=== PATIENT | male | born 1980 | race American Indian/Alaskan Native ===

== ENCOUNTER 2021-10-28 16:36 | Emergency (ER) | payer MEDICAID ==
[2021-10-28] MEDS ORDERED: diphenhydrAMINE 50 MG/ML VIAL IM ONE (17:28)
[2021-10-28] MEDS ORDERED: ZIPRASIDONE MESYLATE 20 MG VIAL IM ONE (17:28)
[2021-10-28] MEDS ORDERED: WATER FOR INJ Sterile (PF) 10 ML ONE (17:36)
[2021-10-28] MEDS ORDERED: TETANUS,DIPH,PERTUSS(ACELL) VACCINE 0.5 ML SYRINGE IM ONE (19:11)
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
[2021-10-28] MEDS ORDERED: diazePAM 10 MG/2 ML SYRINGE IM ONE (20:44)
[2021-10-29 09:27] LABS: Amphetamine Screen,Urine Negative; Benzodiazepines Screen,Urine Negative; Cannabinoid Screen,Urine Negative; Cocaine Screen,Urine Negative; Methadone Screen,Urine Negative; Opiate Screen,Urine Negative
[2021-10-29 09:34] LABS: Mucus,Urine 1+ /HPF
[2021-10-29 09:44] LABS: Color,Urine N (Yellow)
[2021-10-29 10:22] LABS: BUN/Creatinine Ratio 13; Blood Urea Nitrogen 10 mg/dL (9-20); Calcium 9.7 mg/dL (8.4-10.2); Hemolysis Index 82
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
[2021-10-29] MEDS ORDERED: ZIPRASIDONE MESYLATE 20 MG VIAL IM PRN (12:06)
[2021-10-29] MEDS ORDERED: HALOPERIDOL 5 MG TAB PO SCH (13:00)
[2021-10-29] MEDS: BACITRACIN/POLYMYXIN B OINT 28.35 GM TP SCH (22:00)
--- NOTE | 2021-10-30 11:23 | Progress Note ---
Subjective - Reason for Consult Consult date: 10/30/21 Reason for consult: mental health evaluation - Chief Complaint Chief complaint: The patient continues to present with disorganized thoughts. PAST PSYCHIATRIC HISTORY: PAST MEDICAL HISTORY: None reported Family Psychiatric History: None reported or documented SOCIAL HISTORY REVIEW OF SYSTEMS MENTAL STATUS EXAMINATION Assessment (1) Schizoaffective disorder Treatment Plan 1013 Continue Haldol 5 mg Daily Start Haldol 10mg po QHS Geodon 10 mg q6h PRN Continue other home medication Medical: per primary Sitter: defer to primary Disposition: Recommend acute psychiatric inpatient treatment. Will follow. Thanks Case staffed with Dr. Alfredo Medications and Allergies Mental Status Exam - Vital signs Last Vital Signs Temp 98.4 F 10/28/21 16:40 Pulse 110 H 10/28/21 16:40 Resp 14 10/28/21 16:40 BP 100/64 10/28/21 16:40 Pulse Ox 99 10/29/21 09:18
--- NOTE | 2021-10-30 14:39 | Event Note ---
Date: 10/30/21 No significant event overnight. Patient remains hemodynamically stable and afebrile. At the time my evaluation patient denies any discomfort. Will continue behavior health's recommendations. - Hao Chief complaint: The patient continues to present with disorganized thoughts. PAST PSYCHIATRIC HISTORY: PAST MEDICAL HISTORY: None reported Family Psychiatric History: None reported or documented SOCIAL HISTORY REVIEW OF SYSTEMS MENTAL STATUS EXAMINATION Assessment (1) Schizoaffective disorder Treatment Plan 1013 Continue Haldol 5 mg Daily Start Haldol 10mg po QHS Geodon 10 mg q6h PRN Continue other home medication Medical: per primary Sitter: defer to primary Disposition: Recommend acute psychiatric inpatient treatment. Will follow. Thanks Case staffed with Dr. Alfredo
--- NOTE | 2021-10-31 07:02 | Event Note ---
Date: 10/31/21 Psych Obs Note S Pt is a 41yo M presenting with psychosis. She is calm, cooperative, She denies any complaints at this time. Chart reviewed. No overnight events reported O: VSS Pt is comfortable, well appearing, in no distress. Her thoughts appear disorganized She ambulates w/normal steady gait ; no focal neurological deficits A: 41yo F p/w psychosis. Psychiatry recommendation for inpatient admission noted. P: Continue with recommended psychiatric medical management, per psychiatry Await acceptance for admission to acute inpatient psychiatric unit
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
[2021-10-31] MEDS ORDERED: ZIPRASIDONE MESYLATE 20 MG VIAL IM PRN (10:00)
[2021-10-31] MEDS: HALOPERIDOL 5 MG TAB PO SCH (11:02)
[2021-10-31] MEDS: DIVALPROEX DR 125 MG TAB PO SCH (19:12)
[2021-10-31] MEDS: MIDAZOLAM 2 MG/2 ML INJ IM PRN (21:26)
[2021-10-31] MEDS: HALOPERIDOL LACTATE 5 MG/1 ML INJ IM PRN (21:26)
[2021-11-01] MEDS: BACITRACIN/POLYMYXIN B OINT 28.35 GM TP SCH ×2 (05:54→13:40)
[2021-11-01] MEDS: DIVALPROEX DR 125 MG TAB PO SCH ×2 (05:54→13:40)
[2021-11-01] MEDS: HALOPERIDOL 5 MG TAB PO SCH ×2 (05:54→13:40)
--- NOTE | 2021-11-01 07:24 | Event Note ---
Date: 11/01/21 S: Patient refusing vitals otherwise no events reported overnight O: Vital Signs - 8 hr 11/01/21 10:13 O2 Sat by Pulse 97 Oximetry A: Schizoaffective disorder P: 1013/awaiting inpatient psych
--- NOTE | 2021-11-01 08:50 | Progress Note ---
Subjective - Reason for Consult Consult date: 11/01/21 Reason for consult: psychosis - Chief Complaint Chief complaint: The patient was seen today. He is in seclusion. He is acting bizarrely. He is making noises with his mouth and places his hands over his mouth as he's saying the nonsensical words. He does not answer questions directly. REVIEW OF SYSTEMS MENTAL STATUS EXAMINATION Assessment (1) Schizoaffective disorder Treatment Plan 1013 Please give IM antipsychotic if the patient refuses oral antipsychotic Depakote DR 125mg po BID Geodon 20 mg q6h PRN Medical: per primary Sitter: defer to primary Disposition: Recommend acute psychiatric inpatient treatment. Will follow. Thanks Case staffed with Dr. Alfredo Medications and Allergies Mental Status Exam - Vital signs Last Vital Signs Temp 98.3 F 10/31/21 22:10 Pulse 110 H 10/28/21 16:40 Resp 14 10/28/21 16:40 BP 100/64 10/28/21 16:40 Pulse Ox 100 10/30/21 22:00
[2021-11-01] MEDS: HALOPERIDOL LACTATE 5 MG/1 ML INJ IM PRN (20:25)
[2021-11-01] MEDS: MIDAZOLAM 2 MG/2 ML INJ IM PRN (20:33)
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
[2021-11-02] MEDS: HALOPERIDOL 5 MG TAB PO SCH ×3 (10:11→21:35)
[2021-11-02] MEDS: DIVALPROEX DR 250 MG TAB PO SCH ×2 (10:11→21:36)
[2021-11-02] MEDS: BACITRACIN/POLYMYXIN B OINT 28.35 GM TP SCH ×3 (10:24→21:36)
--- NOTE | 2021-11-02 12:00 | Event Note ---
Date: 11/02/21 S: No events reported overnight. Patient allowed vital signs to be taken today and O: Vital Signs - 8 hr 11/02/21 11/02/21 11:08 11:09 Temperature 98.6 F Pulse Rate 101 H Respiratory 18 Rate Blood Pressure 144/81 [Left] O2 Sat by Pulse 100 100 Oximetry A: Schizoaffective disorder P: 1013/awaiting inpatient psych
[2021-11-02] MEDS: DIVALPROEX DR 125 MG TAB PO SCH (19:32)
--- NOTE | 2021-11-03 09:02 | Progress Note ---
Subjective - Reason for Consult Consult date: 11/03/21 Reason for consult: psychosis - Chief Complaint Chief complaint: The patient was seen today. He is still in seclusion. The patient is lying down awake. He appears to be responding to internal stimuli. He is acting oddly. The patient waves at me. He then places his hand over his mouth and just stares at me bizarrely. He does not respond to any questioning. The nurse says they had to medicate the patent with a prn med for agitation. REVIEW OF SYSTEMS MENTAL STATUS EXAMINATION Assessment (1) Schizoaffective disorder Treatment Plan 1013 Please give IM antipsychotic if the patient refuses oral antipsychotic Increased Haldol 10mg po BID Increased Depakote DR 500mg po BID Geodon 20 mg q6h PRN Medical: per primary Sitter: defer to primary Disposition: Recommend acute psychiatric inpatient treatment. Will follow. Thanks Case staffed with Dr. Alfredo Medications and Allergies Mental Status Exam - Vital signs Last Vital Signs Temp 98.9 F 11/02/21 20:20 Pulse 110 H 11/02/21 20:20 Resp 16 11/02/21 20:20 BP 136/88 11/02/21 20:20 Pulse Ox 96 11/02/21 20:20
[2021-11-03] MEDS: BACITRACIN/POLYMYXIN B OINT 28.35 GM TP SCH ×2 (10:44→22:17)
[2021-11-03] MEDS: HALOPERIDOL 5 MG TAB PO SCH ×2 (10:44→22:17)
[2021-11-03] MEDS: DIVALPROEX DR 500 MG TAB PO SCH ×2 (10:44→22:17)
--- NOTE | 2021-11-03 13:36 | Event Note ---
Date: 11/03/21 Patient seen and examined. He is in seclusion. He is breathing spontaneously. He is eating food. He has been agitated. Psychiatric recommendations reviewed and appreciated. Vital Signs 10/28/21 10/29/21 10/29/21 16:40 04:32 09:18 Temperature 98.4 F Pulse Rate 110 H Respiratory 14 Rate Blood Pressure 100/64 [Left] O2 Sat by Pulse 98 100 99 Oximetry 10/30/21 10/31/21 11/01/21 22:00 22:10 10:13 Temperature 98.3 F Pulse Rate Respiratory Rate Blood Pressure [Left] O2 Sat by Pulse 100 97 Oximetry 11/01/21 11/02/21 11/02/21 20:56 11:08 11:09 Temperature 98.8 F 98.6 F Pulse Rate 112 H 101 H Respiratory 18 18 Rate Blood Pressure 144/92 144/81 [Left] O2 Sat by Pulse 97 100 100 Oximetry 11/02/21 20:20 Temperature 98.9 F Pulse Rate 110 H Respiratory 16 Rate Blood Pressure 136/88 [Left] O2 Sat by Pulse 96 Oximetry Lab Results 10/28/21 10/29/21 10/29/21 Range/Units 20:25 09:48 Unknown Sodium (137-145) mmol/L Potassium (3.6-5.0) mmol/L Chloride (98-107) mmol/L Carbon Dioxide (22-30) mmol/L Anion Gap mmol/L BUN (9-20) mg/dL Creatinine (0.8-1.3) mg/dL Estimated GFR ml/min BUN/Creatinine Ratio % Glucose (75-100) mg/dL Calcium (8.4-10.2) mg/dL Urine Color N (Yellow) Urine Turbidity Cloudy (Clear) Specific [place] (Man) 1.020 (1.003-1.030) Ur Protein (Man) 1+ (Negative) mg/dL Ur Ketones (Man) Negative (Negative) Urine Bilirubin (Man) Negative (Negative) Urine WBC (Auto) 1.0 (0.0-6.0) /HPF Urine RBC (Auto) 1.0 (0.0-6.0) /HPF U Epithel Cells (Auto) 1.0 (0-13.0) /HPF Urine RBC (Manual) Trace (Negative) Urine Mucus 1+ /HPF Urine Opiates Screen Urine Methadone Screen Ur Barbiturates Screen Ur Phencyclidine Scrn Ur Amphetamines Screen U Benzodiazepines Scrn Urine Cocaine Screen U Marijuana (THC) Screen Drugs of Abuse Note Plasma/Serum Alcohol (0-0.07) % SARS-CoV-2 (PCR) Negative (Negative) HIV 1&2 Antibody Rapid Non react (Non React) HIV P24 Antigen Non react (Non React) 10/29/21 10/29/21 10/29/21 Range/Units Unknown Unknown Unknown Sodium 140 (137-145) mmol/L Potassium 5.2 H (3.6-5.0) mmol/L Chloride 102.7 (98-107) mmol/L Carbon Dioxide 19 L (22-30) mmol/L Anion Gap 24 mmol/L BUN 10 (9-20) mg/dL Creatinine 0.8 (0.8-1.3) mg/dL Estimated GFR > 60 ml/min BUN/Creatinine Ratio 13 % Glucose 63 L (75-100) mg/dL Calcium 9.7 (8.4-10.2) mg/dL Urine Color (Yellow) Urine Turbidity (Clear) Specific [place] (Man) (1.003-1.030) Ur Protein (Man) (Negative) mg/dL Ur Ketones (Man) (Negative) Urine Bilirubin (Man) (Negative) Urine WBC (Auto) (0.0-6.0) /HPF Urine RBC (Auto) (0.0-6.0) /HPF U Epithel Cells (Auto) (0-13.0) /HPF Urine RBC (Manual) (Negative) Urine Mucus /HPF Urine Opiates Screen Negative Urine Methadone Screen Negative Ur Barbiturates Screen Negative Ur Phencyclidine Scrn Negative Ur Amphetamines Screen Negative U Benzodiazepines Scrn Negative Urine Cocaine Screen Negative U Marijuana (THC) Screen Negative Drugs of Abuse Note Disclamer Plasma/Serum Alcohol < 0.01 (0-0.07) % SARS-CoV-2 (PCR) (Negative) HIV 1&2 Antibody Rapid (Non React) HIV P24 Antigen (Non React)
[2021-11-04] MEDS: HALOPERIDOL 5 MG TAB PO SCH (09:54)
[2021-11-04] MEDS: DIVALPROEX DR 500 MG TAB PO SCH (09:54)
--- NOTE | 2021-11-04 09:57 | Progress Note ---
Subjective - Reason for Consult Consult date: 11/04/21 Reason for consult: psychosis - Chief Complaint Chief complaint: The patient was seen today. He is still in seclusion. The patient is still acting bizarrely. He covers his mouth when I walk in the room, and refuses to speak. I ask him why is he covering his mouth. He replies "I can't speak until after brunch." I tell him that it is breakfast. He then says "I just wanna pray." He is speaking through his hand that's covering his mouth. financial systems administrator record shows the patient is not taking or being given both doses of antipsychotic. This patient can not refuse oral antipsychotic. Communicated that the patient should be given IM antipsychotic as needed q6h if refusing oral antipsychotic. This helps ensure improvement of mental health. REVIEW OF SYSTEMS MENTAL STATUS EXAMINATION Assessment (1) Schizoaffective disorder Treatment Plan 1013 Start Klonopin 0.5mg po BID x 3 days Please give IM antipsychotic if the patient refuses oral antipsychotic Haldol 10mg po BID Depakote DR 500mg po BID Geodon 20 mg q6h PRN Medical: per primary Sitter: defer to primary Disposition: Recommend acute psychiatric inpatient treatment. Will follow. Thanks Case staffed with Dr. Alfredo Medications and Allergies Mental Status Exam - Vital signs Last Vital Signs Temp 98.9 F 11/02/21 20:20 Pulse 91 H 11/03/21 23:57 Resp 18 11/03/21 23:57 BP 118/69 11/03/21 23:57 Pulse Ox 97 11/03/21 23:57
--- NOTE | 2021-11-04 12:25 | Event Note ---
Date: 11/04/21 S: Patient refused vital signs today. Otherwise no other events reported overnight O: Vitals refused A: Schizoaffective disorder P: 1013/awaiting inpatient psych
[2021-11-05] MEDS: BACITRACIN/POLYMYXIN B OINT 28.35 GM TP SCH ×2 (10:06→22:05)
[2021-11-05] MEDS: DIVALPROEX DR 500 MG TAB PO SCH ×2 (10:06→22:05)
[2021-11-05] MEDS: HALOPERIDOL 5 MG TAB PO SCH (10:06)
[2021-11-05] MEDS: clonazePAM 0.5 MG TAB PO SCH ×2 (10:06→22:05)
--- NOTE | 2021-11-05 10:24 | Progress Note ---
Subjective - Reason for Consult Consult date: 11/05/21 Reason for consult: psychosis - Chief Complaint Chief complaint: The patient was seen today. He is still in seclusion. Recommended to security to take him out and see how he does. The patient is humming and making weird noises. He does not respond to any questioning. it network administrator record shows the patient is not taking or being given both doses of antipsychotic. This patient can not refuse oral antipsychotic. Communicated that the patient should be given IM antipsychotic as needed q6h if refusing oral antipsychotic. This helps ensure improvement of mental health. REVIEW OF SYSTEMS MENTAL STATUS EXAMINATION Assessment (1) Schizoaffective disorder Treatment Plan 1013 Start Klonopin 0.5mg po BID x 3 days Please give IM antipsychotic if the patient refuses oral antipsychotic Changed to Haldol 20mg po daily, since the patient takes the morning dose of meds Depakote DR 500mg po BID Geodon 20 mg q6h PRN Medical: per primary Sitter: defer to primary Disposition: Recommend acute psychiatric inpatient treatment. Will follow. Thanks Case staffed with Dr. Alfredo Medications and Allergies Mental Status Exam - Vital signs Last Vital Signs Temp 98.9 F 11/02/21 20:20 Pulse 91 H 11/03/21 23:57 Resp 18 11/03/21 23:57 BP 118/69 11/03/21 23:57 Pulse Ox 97 11/03/21 23:57
--- NOTE | 2021-11-05 12:49 | Event Note ---
Date: 11/05/21 Nursing team reports that the patient remains psychotic, and is asking to only be spoken to in a soft [place]. He ate food today without difficulty. He has not had vital signs since November 03. He is awake and breathing spontaneously, and moving 4 extremities. Patient is ordered for as needed medications. Have placed order to administer as needed medications to address agitation, if patient continues to refuse vital signs. Have also placed communication order to obtain repeat vital signs for today. Vital Signs 10/28/21 10/29/21 10/29/21 16:40 04:32 09:18 Temperature 98.4 F Pulse Rate 110 H Respiratory 14 Rate Blood Pressure 100/64 [Left] O2 Sat by Pulse 98 100 99 Oximetry 10/30/21 10/31/21 11/01/21 22:00 22:10 10:13 Temperature 98.3 F Pulse Rate Respiratory Rate Blood Pressure [Left] O2 Sat by Pulse 100 97 Oximetry 11/01/21 11/02/21 11/02/21 20:56 11:08 11:09 Temperature 98.8 F 98.6 F Pulse Rate 112 H 101 H Respiratory 18 18 Rate Blood Pressure 144/92 144/81 [Left] O2 Sat by Pulse 97 100 100 Oximetry 11/02/21 11/03/21 11/05/21 20:20 23:57 10:43 Temperature 98.9 F Pulse Rate 110 H 91 H Respiratory 16 18 Rate Blood Pressure 136/88 118/69 [Left] O2 Sat by Pulse 96 97 97 Oximetry
[2021-11-06 08:29] VITALS: BP 167/91
[2021-11-06] MEDS ORDERED: HALOPERIDOL 5 MG TAB PO SCH (10:00)
--- NOTE | 2021-11-06 10:56 | Progress Note ---
Subjective - Reason for Consult Consult date: 11/06/21 Reason for consult: agitation - Chief Complaint Chief complaint: The patient was seen today. I spoke with the nursing staff prior to evaluating this patient today. They say the patient has been talking, and has organized thoughts. They say he only does that when I'm around. During the evaluation the patient is covering his mouth and refusing to speak. I tell him he's going home, and he then all of a sudden starts speaking. He says "give me my prescriptions and show me the elevator." The patient says "good, where are my scripts." No longer recommend acute inpatient psych treatment. It appears the patient was here for secondary gains. REVIEW OF SYSTEMS MENTAL STATUS EXAMINATION Assessment (1) Schizoaffective disorder Treatment Plan d/c 1013 Changed to Haldol 20mg po daily Depakote DR 500mg po BID Medical: per primary Sitter: defer to primary Disposition: Do not recommend acute psychiatric inpatient treatment. The mold car pusher to give the patient all necessary outpatient resources The patient to follow up with outpatient psych in 7 to 14 days upon discharge Will sign off. Thanks Case staffed with Dr. Alfredo Medications and Allergies Mental Status Exam - Vital signs Last Vital Signs Temp 98.0 F 11/06/21 08:28 Pulse 102 H 11/06/21 08:28 Resp 18 11/06/21 08:28 BP 167/91 11/06/21 08:28 Pulse Ox 99 11/06/21 08:29
--- NOTE | 2021-11-06 12:54 | Event Note ---
Date: 11/06/21 Nursing team reports no acute issues or concerns. The psychiatric team have recommended discontinuation of 1013. Vital signs reviewed and appreciated. Patient to be discharged with outpatient follow-up Vital Signs 10/28/21 10/29/21 10/29/21 16:40 04:32 09:18 Temperature 98.4 F Pulse Rate 110 H Respiratory 14 Rate Blood Pressure 100/64 [Left] O2 Sat by Pulse 98 100 99 Oximetry 10/30/21 10/31/21 11/01/21 22:00 22:10 10:13 Temperature 98.3 F Pulse Rate Respiratory Rate Blood Pressure [Left] O2 Sat by Pulse 100 97 Oximetry 11/01/21 11/02/21 11/02/21 20:56 11:08 11:09 Temperature 98.8 F 98.6 F Pulse Rate 112 H 101 H Respiratory 18 18 Rate Blood Pressure 144/92 144/81 [Left] O2 Sat by Pulse 97 100 100 Oximetry 11/02/21 11/03/21 11/05/21 20:20 23:57 10:43 Temperature 98.9 F Pulse Rate 110 H 91 H Respiratory 16 18 Rate Blood Pressure 136/88 118/69 [Left] O2 Sat by Pulse 96 97 97 Oximetry 11/06/21 11/06/21 08:28 08:29 Temperature 98.0 F Pulse Rate 102 H Respiratory 18 Rate Blood Pressure 167/91 [Left] O2 Sat by Pulse 99 99 Oximetry
[2021-11-06] MEDS: BACITRACIN/POLYMYXIN B OINT 28.35 GM TP SCH ×2 (14:29→22:09)
[2021-11-06] MEDS: DIVALPROEX DR 500 MG TAB PO SCH ×2 (14:29→22:09)
[2021-11-06] MEDS: clonazePAM 0.5 MG TAB PO SCH ×2 (14:29→22:09)
== END 2021-11-07 18:52 | disposition home or self-care (01) ==
LOC: ED 16:36 → EEVIPCON 16:36 → ED 11-07 18:52
DX: S01.312A Laceration without foreign body of left ear, initial encounter (principal); Z20.822 Contact with and (suspected) exposure to COVID-19; H11.30 Conjunctival hemorrhage, unspecified eye; F29 Unspecified psychosis not due to a substance or known physiological condition; R45.6 Violent behavior; Z72.89 Other problems related to lifestyle; Z79.899 Other long term (current) drug therapy; Y04.8XXA Assault by other bodily force, initial encounter; Y93.89 Activity, other specified; Y92.89 Other specified places as the place of occurrence of the external cause; Y99.8 Other external cause status
CPT/HCPCS: 36415; 70450; 70486; 72125; 80048; 80307; 81001; 87806; 96372; 99285; J1200; J1630; J2250; J3486; U0003; 80320; G0480

== ENCOUNTER 2021-12-02 21:03 | Emergency (ER) | payer MEDICAID ==
[2021-12-02] MEDS ORDERED: HALOPERIDOL LACTATE 5 MG/1 ML INJ IM PRN (21:17)
[2021-12-02] MEDS ORDERED: MIDAZOLAM 2 MG/2 ML INJ IM PRN (21:17)
--- NOTE | 2021-12-02 21:18 | Emergency Department Report ---
ED General Adult HPI - General Chief complaint: Psych Stated complaint: PSYCH EVAL Time Seen by Provider: 12/02/21 21:16 Source: patient, EMS (Verbal report received from emergency medical services. EMS documentation not available at time of chart dictation ), RN notes reviewed, old records reviewed Mode of arrival: Ambulatory Limitations: Other (The patient is acutely psychotic and disorganized) - History of Present Illness Initial comments: This is a 41-year-old gentleman, who was brought to the hospital by emergency medical services with an EMS articulated complaint of "psych." History obtained entirely from EMS as this patient is acutely disorganized and psychotic. EMS reports that the patient was found hiding in the bushes, and threatening to kill people or himself. He does not know who called 911. EMS reports that the patient is currently in paper scrubs, and recently got on a bus from [facility], and made his way to [place]. EMS reports that the patient would not allow vital signs. In the emergency room, the patient is awake and alert, moving 4 extremities and protecting his airway. He is acutely psychotic and disorganized. He has a nonsensical thought pattern. He is asking nurses and staff members about their intimate habits. The patient will not answer questions as to homicidality suicidality or hallucinations. The patient indicates he is not having physical pain at this time. The patient does not endorse any complaints to myself - Related Data Home Medications Medication Instructions Recorded Confirmed Last Taken Clindamycin Phos/Benzoyl Perox 60 gm TP BID 11/30/14 11/30/14 Unknown [Benzaclin Gel 1%-5%] LORazepam [Ativan] 1 mg PO TID 11/30/14 11/30/14 11/29/14 Olanzapine [ZyPREXA] 20 mg PO QDAY 11/30/14 11/30/14 Unknown Starch 51%(Nf) [Anusol] 1 each NE BID 11/30/14 11/30/14 Unknown traMADoL [Ultram] 50 mg PO Q6HR PRN 11/30/14 11/30/14 Unknown Previous Rx's Medication Instructions Recorded Last Taken Type Cyclobenzaprine [Flexeril 10 MG 10 mg PO Q8H PRN #21 tablet 12/01/14 Unknown Rx TAB] Prednisone [predniSONE 10 mg 10 mg PO .TAPER #1 tab.ds.pk 12/01/14 Unknown Rx (6-Day Pack, 21 Tabs)] traMADoL [Ultram 50 MG tab] 50 mg PO Q6H PRN #30 tablet 12/01/14 Unknown Rx Ibuprofen [Motrin 800 MG tab] 800 mg PO Q8HR PRN #30 tablet 07/23/15 Unknown Rx traMADoL [Ultram] 50 mg PO Q6HR PRN #20 tablet 07/23/[address] [Geraldo GARDNER] 500 mg PO BID #60 tablet 11/06/21 Unknown Rx haloperidoL [Haloperidol] 20 mg PO QDAY #30 11/06/21 Unknown Rx Allergies Allergy/AdvReac Type Severity Reaction Status Date / Time No Known Allergies Allergy Verified 10/28/21 16:43 ED Review of Systems ROS: Stated complaint: PSYCH EVAL Other details as noted in HPI Comment: Unobtainable due to pts medical conditions ED Past Medical Hx - Past Medical History Hx Psychiatric Treatment: Yes - Social History Smoking Status: Unknown if ever smoked - Medications Home Medications: Home Medications Medication Instructions Recorded Confirmed Last Taken Type Clindamycin Phos/Benzoyl Perox 60 gm TP BID 11/30/14 11/30/14 Unknown History [Benzaclin Gel 1%-5%] LORazepam [Ativan] 1 mg PO TID 11/30/14 11/30/14 11/29/14 History Olanzapine [ZyPREXA] 20 mg PO QDAY 11/30/14 11/30/14 Unknown History Starch 51%(Nf) [Anusol] 1 each NE BID 11/30/14 11/30/14 Unknown History traMADoL [Ultram] 50 mg PO Q6HR PRN 11/30/14 11/30/14 Unknown History Cyclobenzaprine [Flexeril 10 MG 10 mg PO Q8H PRN #21 tablet 12/01/14 Unknown Rx TAB] Prednisone [predniSONE 10 mg 10 mg PO .TAPER #1 tab.ds.pk 12/01/14 Unknown Rx (6-Day Pack, 21 Tabs)] traMADoL [Ultram 50 MG tab] 50 mg PO Q6H PRN #30 tablet 12/01/14 Unknown Rx Ibuprofen [Motrin 800 MG tab] 800 mg PO Q8HR PRN #30 tablet 07/23/15 Unknown Rx traMADoL [Ultram] 50 mg PO Q6HR PRN #20 tablet 07/23/[address] [DepaKOTE DR] 500 mg PO BID #60 tablet 11/06/21 Unknown Rx haloperidoL [Haloperidol] 20 mg PO QDAY #30 11/06/21 Unknown Rx ED Physical Exam - General Limitations: Other (The patient is acutely psychotic and disorganized) General appearance: alert, in no apparent distress - Head Head exam: Present: atraumatic, normocephalic - Eye Eye exam: Present: normal appearance, EOMI. Absent: nystagmus - ENT ENT exam: Present: normal exam, normal orophraynx, mucous membranes moist, normal external ear exam - Neck Neck exam: Present: normal inspection, full ROM. Absent: tenderness, mening ismus - Respiratory Respiratory exam: Present: normal lung sounds bilaterally. Absent: respiratory distress, wheezes, rales, rhonchi, stridor, decreased breath sounds - Cardiovascular Cardiovascular Exam: Present: regular rate, normal rhythm, normal heart sounds. Absent: bradycardia, tachycardia, irregular rhythm, systolic murmur, diastolic murmur, rubs, gallop - GI/Abdominal GI/Abdominal exam: Present: soft. Absent: distended, tenderness, guarding, rebound, rigid, pulsatile mass - Rectal Rectal exam: Present: deferred - Extremities Exam Extremities exam: Present: normal inspection, full ROM, other (2+ pulses noted in the bilateral upper and lower extremities. There is no palpable cord. neg ative Homans sign. Muscular compartments are soft. The pelvis is stable.). Absent: pedal edema, calf tenderness - Back Exam Back exam: Present: normal inspection. Absent: tenderness, CVA tenderness (R), CVA tenderness (L), paraspinal tenderness, vertebral tenderness - Neurological Exam Neurological exam: Present: alert (The patient is alert and oriented to name. The patient follows some commands), normal gait, other (There is no facial droop. The tongue is midline. EOMI. 5 out of 5 strength in 4 extremities). Absent: motor sensory deficit - Psychiatric Psychiatric exam: Present: anxious - Skin Skin exam: Present: warm, dry, intact, normal color. Absent: rash ED Course Vital Signs 12/02/21 22:11 Temperature 98.3 F Pulse Rate 80 Respiratory 16 Rate Blood Pressure 125/80 [Left] O2 Sat by Pulse 100 Oximetry - Reevaluation(s) Reevaluation #1: 12/02/21 21:33 Differential diagnosis, including but not limited to: Psychosis, medical clearance for psychiatric placement Assessment and plan: 41-year-old gentleman, who is known to this hospital, presenting with acute psychosis. He is acutely incapacitated, and is not able to care for himself independently. Furthermore, EMS reports that the patient has made comments about possibly harming himself or other people. A 1013 form was filled out by myself. Patient medicated with haloperidol and Versed. Vital signs will be obtained. Appropriate screening laboratory studies will be obtained. We will reassess. Thus far, his physical examination is noncontributory 12/03/21 01:24 Laboratory studies are essentially unremarkable. Vital signs are unremarkable. Urinalysis, drug screen, and COVID swab pending at this time. The emergency room will follow along as the patient provides these. These tests are not required to exclude emergent medical conditions. At this point in time, this patient does not appear to have an immediate medical contraindication to p sychiatric admission, evaluation, consultation and placement ED Medical Decision Making - Lab Data Result diagrams: 12/03/21 00:10 12/03/21 00:10 Vital Signs 12/02/21 22:11 Temperature 98.3 F Pulse Rate 80 Respiratory 16 Rate Blood Pressure 125/80 [Left] O2 Sat by Pulse 100 Oximetry Lab Results 12/03/21 12/03/21 12/03/21 Range/Units 00:10 00:10 00:10 WBC (4.5-11.0) K/mm3 RBC (3.65-5.03) M/mm3 Hgb (11.8-15.2) gm/dl Hct (35.5-45.6) % MCV (84-94) fl MCH (28-32) pg MCHC (32-34) % RDW (13.2-15.2) % Plt Count (140-440) K/mm3 Sodium 140 (137-145) mmol/L Potassium 4.1 (3.6-5.0) mmol/L Chloride 100.7 (98-107) mmol/L Carbon Dioxide 29 (22-30) mmol/L Anion Gap 14 mmol/L BUN 17 (9-20) mg/dL Creatinine 0.7 L (0.8-1.3) mg/dL Estimated GFR > 60 ml/min BUN/Creatinine Ratio 24 % Glucose 95 (75-100) mg/dL Calcium 9.6 (8.4-10.2) mg/dL Salicylates < 0.3 L (2.8-20.0) mg/dL Acetaminophen 5.0 L (10.0-30.0) ug/mL Plasma/Serum Alcohol (0-0.07) % 12/03/21 12/03/21 Range/Units 00:10 00:10 WBC 4.8 (4.5-11.0) K/mm3 RBC 4.73 (3.65-5.03) M/mm3 Hgb 13.2 (11.8-15.2) gm/dl Hct 41.1 (35.5-45.6) % MCV 87 (84-94) fl MCH 28 (28-32) pg MCHC 32 (32-34) % RDW 15.0 (13.2-15.2) % Plt Count 169 (140-440) K/mm3 Sodium (137-145) mmol/L Potassium (3.6-5.0) mmol/L Chloride (98-107) mmol/L Carbon Dioxide (22-30) mmol/L Anion Gap mmol/L BUN (9-20) mg/dL Creatinine (0.8-1.3) mg/dL Estimated GFR ml/min BUN/Creatinine Ratio % Glucose (75-100) mg/dL Calcium (8.4-10.2) mg/dL Salicylates (2.8-20.0) mg/dL Acetaminophen (10.0-30.0) ug/mL Plasma/Serum Alcohol < 0.01 (0-0.07) % Critical care attestation.: If time is entered above; I have spent that time in minutes in the direct care of this critically ill patient, excluding procedure time. ED Disposition Clinical Impression: Medical clearance for psychiatric admission Disposition: [address] [place] [address] Is pt being admited?: No Does the pt Need Aspirin: No Condition: Good
[2021-12-03 00:24] LABS: Hematocrit 41.1 % (35.5-45.6); Hemoglobin 13.2 gm/dl (11.8-15.2); Mean Corpuscular HGB Conc 32 % (32-34); Mean Corpuscular Volume 87 fl (84-94); Platelet Count 169 K/mm3 (140-440); Red Blood Count 4.73 M/mm3 (3.65-5.03)
[2021-12-03 00:45] LABS: Blood Urea Nitrogen 17 mg/dL (9-20); Calcium 9.6 mg/dL (8.4-10.2); Hemolysis Index 13
[2021-12-03 00:50] LABS: BUN/Creatinine Ratio 24
[2021-12-03 08:09] LABS: Amphetamine Screen,Urine Negative; Cannabinoid Screen,Urine Negative; Cocaine Screen,Urine Negative; Methadone Screen,Urine Negative; Opiate Screen,Urine Negative
[2021-12-03 08:25] LABS: Bilirubin,Urine NEG (Negative); Blood,Urine NEG (Negative); Color,Urine Yellow (Yellow); Protein,Urine <15 mg/dL mg/dL (Negative)
[2021-12-03 08:27] LABS: RBC,Urine < 1.0 /HPF (0.0-6.0); Urobilinogen,Urine < 2 mg/dL (<2.0)
[2021-12-03 08:33] LABS: Benzodiazepines Screen,Urine Positive
[2021-12-03 08:43] LABS: WBC,Urine < 1.0 /HPF (0.0-6.0)
[2021-12-03 08:54] VITALS: BP 139/76
--- NOTE | 2021-12-03 10:30 | Progress Note ---
Subjective - Reason for Consult Consult date: 12/03/21 Reason for consult: psych eval - Chief Complaint Chief complaint: The patient was seen today. He is known to me from a recent visit. He tells me he remembers me. The patient is rude and uncooperative at times. He says he was brought here by the police and the EMS. The patient says he doesn't know why he was brought here. He then says "I think for a mental eval." He denies SI/HI. He denies hallucinations of any kind. He says "talk to her. I don't want to talk anymore." REVIEW OF SYSTEMS Constitutional: Negative for weight loss ENT: Negative for stridor Respiratory: Negative for cough or hemoptysis All other systems reviewed and are negative MENTAL STATUS EXAMINATION General Appearance and Behavior: Age appropriate, wearing appropriate clothes, rude Cooperation: reluctant to coopere Psychomotor Behavior: Psychomotor normal Mood: okay Affect and affective range: euthymic Thought Process: circumstantial Thought Content: reality-based Speech: Normal volume, Regular rate and rhythm Suicidal Ideation: Denies Homicidal Ideation: Denies Hallucination: Denies Delusions: Denies Impulse Control: Limited Insight and Judgment: Limited Memory: Limited Attention: limited Orientation: Alert and oriented to time and person Assessment (1) Schizoaffective disorder Treatment Plan Continue meds previously prescribed Medical: per primary Sitter: defer to primary Disposition: Do not recommend acute psychiatric inpatient treatment. The general service technician to give the patient all necessary outpatient resources The patient to follow up with outpatient psych in 7 to 14 days upon discharge Will sign off. Thanks Case staffed with Dr. Alfredo Mental Status Exam - Vital signs Last Vital Signs Temp 97.7 F 12/03/21 08:53 Pulse 85 12/03/21 08:53 Resp 18 12/03/21 08:53 BP 139/76 12/03/21 08:53 Pulse Ox 100 12/03/21 08:54
== END 2021-12-03 12:57 | disposition home or self-care (01) ==
LOC: ED 21:03
DX: Z04.6 Encounter for general psychiatric examination, requested by authority (principal); Z20.822 Contact with and (suspected) exposure to COVID-19; Z79.899 Other long term (current) drug therapy
CPT/HCPCS: 36415; 80048; 80307; 81001; 85027; 96372; 99284; J1630; J2250; U0003; 80320; G0480